=== PATIENT | female | born 1970 | race Caucasian/White ===

== ENCOUNTER 2016-12-01 09:36 | Emergency (ER) | payer BC, OTHER ==
[~2016-12-01] VITALS: Ht 157.5 cm; Wt 66.2 kg
[~2016-12-01 09:36] MED LIST: ARIP2TAB3 PO; BUPRTAB51 PO; GDN/80 PO; SPIR100T PO
[2016-12-01 09:39] VITALS: TEMP 36.8; Ht 157.5 cm; Wt 66.2 kg
[2016-12-01 10:01] VITALS: O2SAT 98
[2016-12-01] MEDS ORDERED: SNG10 PO (10:08)
[2016-12-01 10:36] LABS: BASO % 0.4 %; EOS % 3.6 %; HEMATOCRIT 42.8 % (37-47); IG% 0.3 %; LYMPH % 21.4 %; LYMPH ABS # 2.12 K/uL (1.2-3.4); MEAN CELL VOLUME 88.2 fL (80-100); MEAN CORPUSCULAR HEMOGLOBIN 29.7 pg (25-34); MEAN CORPUSCULAR HGB CONC 33.6 g/dl (32-36); MEAN PLATELET VOLUME 9.2 fL (7.4-10.4); MONO % 7.2 %; NEUT % 67.1 %; PLATELET COUNT 249 K/uL (130-400); RED BLOOD COUNT 4.85 M/uL (4.2-5.4)
[2016-12-01 10:37] LABS: BASO ABS # 0.04 K/uL (0-0.2); COMPLETE YES
--- NOTE | 2016-12-01 10:43 | DIAGNOSTIC IMAGING REPORT ---
SINGLE VIEW CHEST CLINICAL HISTORY: Atypical chest pain. FINDINGS: An AP, portable, upright chest radiograph is compared to study dated 02/22/2014. The cardiomediastinal silhouette is unremarkable. The lungs and pleural spaces are clear. There is mild apical scarring. No pneumothorax is seen. The bony thorax is grossly intact. IMPRESSION: No active disease in the chest. Electronically signed by: Merlin Juarez M.D. 12/01/2016 10:42 AM Dictated Date/Time: 12/01/2016 10:41 AM
[2016-12-01 10:46] LABS: PREG INTERNAL NEGATIVE QC NEG CLEAR BACKGROUND; PREG INTERNAL POSITIVE QC POS CONTROL LINE
[2016-12-01 10:54] LABS: ALT/SGPT 24 U/L (12-78); BLOOD UREA NITROGEN 15 mg/dl (7-18); BUN/CREATININE RATIO 18.3 (10-20); CALCIUM 8.8 mg/dl (8.5-10.1); CARBON DIOXIDE 29 mmol/L (21-32); CHLORIDE 105 mmol/L (98-107); CREATININE 0.84 mg/dl (0.60-1.20); GLUCOSE 89 mg/dl (70-99); POTASSIUM 4.2 mmol/L (3.5-5.1); SODIUM 138 mmol/L (136-145)
[2016-12-01 10:57] LABS: PARTIAL THROMBOPLASTIN RATIO 1.1; PROTHROMBIN TIME (PATIENT) 10.6 SECONDS (9.0-12.0)
[2016-12-01 10:59] LABS: ALKALINE PHOSPHATASE 53 U/L (45-117); AST/SGOT 15 U/L (15-37)
--- NOTE | 2016-12-01 11:20 | EMERGENCY ROOM VISIT NOTE ---
History Report prepared by Eli: Charleen Landry Under the Supervision of: Dr. Dexter Andrew D.O. First contact with patient: 10:23 Chief Complaint: CHEST PAIN Stated Complaint: CHEST PAIN Nursing Triage Summary: pt reports midsternal cp that started several weeeks ago readiates to the L side of chest . reports pain has intesified overnight , denies sob or NV History of Present Illness The patient is a 46 year old female who presents to the Emergency Room with complaints of worsening chest pain starting several weeks ago. The pain is in the center of her chest and radiates to the left. She has had the pain for a while, but it worsened overnight. She called her PCP today who told her to present to the ED. She kept waking up through the night because of the pain. The pain worsens with breathing deeply and certain movements like raising her arms up and sitting up. She denies any abdominal pain, pain/swelling in the legs , SOB, or chest pain with walking. She has not been sick recently. She denies any history of blood clots. She notes that she traveled 12 hours 1 week ago. Her LNMP was 2 weeks ago which was normal for her. She denies any tobacco use. She admits to occasional alcohol use. She has a history of bipolar and seasonal allergies. Source of History: patient Onset: several weeks ago Position: chest Quality: other (pain) Timing: worsening Modifying Factors (Worsening): breathing, movement Associated Symptoms: No SOB, No abdominal pain Note: Pt denies pain/swelling in the legs, chest pain with walking. Review of Systems See HPI for pertinent positives & negatives. A total of 10 systems reviewed and were otherwise negative. Past Medical & Surgical Medical Problems: (1) Bipolar disorder (2) Seasonal allergies Family History No pertinent family history stated. Social History Smoking Status: Never Smoker Alcohol Use: occasionally Marital Status: Housing Status: lives with family Current/Historical Medications Scheduled Aripiprazole (Abilify), 2.5 MG PO DAILY Bupropion Hcl (Wellbutrin Xl), 150 MG PO DAILY Montelukast Sod (Montelukast Sodium), 10 MG PO DAILY Spironolactone (Aldactone), 50 MG PO BID Allergies Coded Allergies: Sulfamethoxazole w/Trimethoprim (Verified Allergy, Unknown, hives/rash, 12/01/16) Physical Exam Vital Signs Date Time Temp Pulse Resp B/P (MAP) Pulse Ox O2 Delivery O2 Flow Rate FiO2 12/01/16 11:49 73 16 97/69 99 12/01/16 11:43 73 16 97/69 99 Room Air 12/01/16 10:21 68 24 97 12/01/16 10:16 71 15 97 12/01/16 10:11 76 17 97 12/01/16 10:06 70 17 97 12/01/16 10:01 70 20 97 12/01/16 10:01 98 Room Air 12/01/16 09:56 69 19 98 12/01/16 09:54 72 12/01/16 09:51 95/72 12/01/16 09:39 36.8 76 18 125/82 97 Room Air Physical Exam GENERAL: Patient is awake, alert, and in no acute distress. Patient is resting comfortably and showing no signs of anxiety EYES: The conjunctivae are clear. The pupils are round and reactive. EARS, NOSE, MOUTH AND THROAT: The nose is without any evidence of any deformity. Mucous membranes are moist tongue is midline NECK: The neck is nontender and supple. RESPIRATORY: Normal respiratory effort is noted there is no evidence of wheezing rhonchi or rales CARDIOVASCULAR: Regular rate and rhythm noted there no murmurs rubs or gallops normal S1 normal S2 GASTROINTESTINAL: The abdomen is soft. Bowel sounds are present in all quadrants. Abdomen is nontender MUSCULOSKELETAL/EXTREMITIES: There is no evidence of gross deformity full range of motion is noted in the hips and shoulders. Reproducible chest pain with palpation over the left anterior chest wall. SKIN: There is no obvious evidence of any rash. There are no petechiae, pallor or cyanosis noted. NEUROLOGIC: Patient is awake alert and oriented x3 Medical Decision & Procedures ER Provider Diagnostic Interpretation: X-ray results as stated below per interpretation by me and the radiologist. SINGLE VIEW CHEST CLINICAL HISTORY: Atypical chest pain. FINDINGS: An AP, portable, upright chest radiograph is compared to study dated 02/22/2014. The cardiomediastinal silhouette is unremarkable. The lungs and pleural spaces are clear. There is mild apical scarring. No pneumothorax is seen. The bony thorax is grossly intact. IMPRESSION: No active disease in the chest. Electronically signed by: Merlin Juarez M.D. 12/01/2016 10:42 AM Dictated Date/Time: 12/01/2016 10:41 AM Laboratory Results 12/01/16 10:01 Red Blood Count 4.85, Mean Corpuscular Volume 88.2, Mean Corpuscular Hemoglobin 29.7, Mean Corpuscular Hemoglobin Concent 33.6, Mean Platelet Volume 9.2, Neutrophils (%) (Auto) 67.1, Lymphocytes (%) (Auto) 21.4, Monocytes (%) (Auto) 7.2, Eosinophils (%) (Auto) 3.6, Basophils (%) (Auto) 0.4, Neutrophils # (Auto) 6.64, Lymphocytes # (Auto) 2.12, Monocytes # (Auto) 0.71, Eosinophils # (Auto) 0.36, Basophils # (Auto) 0.04 12/01/16 10:01 Test 12/01/16 10:01 12/01/16 10:36 White Blood Count 9.90 K/uL (4.8-10.8) Red Blood Count 4.85 M/uL (4.2-5.4) Hemoglobin 14.4 g/dL (12.0-16.0) Hematocrit 42.8 % (37-47) Mean Corpuscular Volume 88.2 fL (80-100) Mean Corpuscular Hemoglobin 29.7 pg (25-34) Mean Corpuscular Hemoglobin Concent 33.6 g/dl (32-36) Platelet Count 249 K/uL (130-400) Mean Platelet Volume 9.2 fL (7.4-10.4) Neutrophils (%) (Auto) 67.1 % Lymphocytes (%) (Auto) 21.4 % Monocytes (%) (Auto) 7.2 % Eosinophils (%) (Auto) 3.6 % Basophils (%) (Auto) 0.4 % Neutrophils # (Auto) 6.64 K/uL (1.4-6.5) Lymphocytes # (Auto) 2.12 K/uL (1.2-3.4) Monocytes # (Auto) 0.71 K/uL (0.11-0.59) Eosinophils # (Auto) 0.36 K/uL (0-0.5) Basophils # (Auto) 0.04 K/uL (0-0.2) RDW Standard Deviation 41.2 fL (36.4-46.3) RDW Coefficient of Variation 12.9 % (11.5-14.5) Immature Granulocyte % (Auto) 0.3 % Immature Granulocyte # (Auto) 0.03 K/uL (0.00-0.02) Prothrombin Time 10.6 SECONDS (9.0-12.0) Prothromb Time International Ratio 1.0 (0.9-1.1) Activated Partial Thromboplast Time 29.6 SECONDS (21.0-31.0) Partial Thromboplastin Ratio 1.1 Anion Gap 4.0 mmol/L (3-11) Est Creatinine Clear Calc Drug Dose 74.7 ml/min Estimated GFR () 96.6 Estimated GFR (Non- 83.3 BUN/Creatinine Ratio 18.3 (10-20) Calcium Level 8.8 mg/dl (8.5-10.1) Total Bilirubin 0.5 mg/dl (0.2-1) Direct Bilirubin < 0.1 mg/dl (0-0.2) Aspartate Amino Transf (AST/SGOT) 15 U/L (15-37) Alanine Aminotransferase (ALT/SGPT) 24 U/L (12-78) Alkaline Phosphatase 53 U/L (45-117) Troponin I < 0.015 ng/ml (0-0.045) Total Protein 6.8 gm/dl (6.4-8.2) Albumin 3.6 gm/dl (3.4-5.0) Lipase 208 U/L (73-393) Human Chorionic Gonadotropin, Qual NEG (NEG) Bedside D-Dimer 115 ng/mlFEU (0-450) Laboratory results per my review. ECG Indication: chest pain Rate (beats per minute): 75 Rhythm: normal sinus Findings: no ectopy, other (no acute ST segment abnormality) Comparison ECG Date: 22-Feb-2014 Change: no significant change ED Course 1027: The patient was evaluated in room B6. A complete history and physical examination were performed. 1129: Upon reevaluation, the patient is resting comfortably. I discussed the results and treatment plan with her. She verbalized agreement of the treatment plan. She was discharged home. Medical Decision Prior records/ancillary studies reviewed. Triage Nursing notes reviewed. The patient's history was concerning for chest pain. Differential diagnosis: Etiologies such as cardiac ischemia, aortic dissection, pulmonary embolism, pneumonia, pneumothorax, musculoskeletal, infections, pericarditis, myocarditis , esophageal rupture, gastrointestinal, as well as others were entertained. Medication Reconciliation: I attest that I have personally reviewed the patient' s current medications list. Blood pressure screening: Patient was found to have normal blood pressure on screening and does not require follow-up. The patient is a 46-year-old female who presented to the emergency department at the request of her primary care physician for reproducible chest pain which have been going on for a few days. The patient states that she's had a similar episode in the past and was diagnosed with pleurisy. The patient was found have an EKG which was unchanged from previous and did not show any acute ischemic changes. She also was found have normal cardiac biomarkers as well as a normal d -dimer. I discussed the patient's laboratory radiographic studies with her. I also discussed the limitations of the emergency department workup for chest pain with her but at this time I think this most likely represents costochondritis or possibly pleurisy. The patient was encouraged to rest and avoid any strenuous activity. She was also encouraged to call her primary care physician to schedule a follow-up appointment. She was also encouraged to return to emergency department immediately if symptoms change worsen or the need arises. Impression Primary Impression: Chest pain Additional Impression: Costochondritis Scribe Attestation The scribe's documentation has been prepared under my direction and personally reviewed by me in its entirety. I confirm that the note above accurately reflects all work, treatment, procedures, and medical decision making performed by me. Departure Information Dispostion Home / Self-Care Referrals Trinidad Geiger D.O. (PCP) Forms HOME CARE DOCUMENTATION FORM, IMPORTANT VISIT INFORMATION Patient Instructions ED Chest Pain Costochondritis, My [facility] Additional Instructions Call your family to schedule a follow-up appointment. Rest and avoid any strenuous activity. Continue using Motrin and Tylenol as directed for pain. Follow-up with your family this week for reevaluation. Return to the emergency department if symptoms worsen or need arises. Problem Qualifiers Primary Impression: Chest pain Chest pain type: unspecified Qualified Codes: R07.9 - Chest pain, unspecified
[2016-12-01 11:49] VITALS: BP 97/69; PULSE 73; O2SAT 99
== END 2016-12-01 11:50 | disposition home or self-care (01) ==
LOC: C.EDB 09:37
DX: R07.9 Chest pain, unspecified (principal); M94.0 Chondrocostal junction syndrome [Tietze]; F31.9 Bipolar disorder, unspecified; J30.2 Other seasonal allergic rhinitis

== ENCOUNTER 2017-12-20 19:18 | Emergency (ER) | payer OTHER ==
[~2017-12-20] VITALS: Ht 157.5 cm; Wt 73.4 kg
[~2017-12-20 19:18] MED LIST changes: -GDN/80 PO; +SNG10 PO
[2017-12-20 19:21] VITALS: PULSE 100; O2SAT 99; Ht 157.5 cm; Wt 73.4 kg
[2017-12-20] MEDS ORDERED: LIDOCAINE HCL 1% 20 ML VIAL ONE (19:26)
--- NOTE | 2017-12-20 19:41 | EMERGENCY ROOM VISIT NOTE ---
ED Visit Note First contact with patient: 19:23 Foreign body CHIEF COMPLAINT: Stepped on glass HISTORY OF PRESENT ILLNESS: This 47-year-old patient presents to the emergency department after they stepped on some glass puncturing the bottom of the right foot. The glass did not go through their shoe. The area is painful and the patient does think there is anything in the wound. The patient's tetanus shot is up-to-date. The patient rates the pain as mild and 2/10. The patient has tried to remove the piece of glass but was unsuccessful. The patient is able able to walk. This happened inside the house. REVIEW OF SYSTEMS: A 6 system review of systems was completed with positives and pertinent negatives listed in the HPI. ALLERGIES: Sulfa MEDICATIONS: Reviewed PMH: Medical Problems: (1) Bipolar disorder Status: Chronic (2) Seasonal allergies Status: Chronic SOCIAL HISTORY: No drug use PHYSICAL EXAM: Vital Signs: Reviewed Nurse's notes, vital signs stable. GENERAL : Pleasant female, in no acute distress, well-developed, well-nourished. SKIN: There is a small e abrasion wound on the plantar aspect of the ball of the right foot . A small piece of glass foreign material is seen in the wound. The epidermis was lifted off the puncture site and the base of the wound inspected. foreign material could be seen there. The area was not particularly tender or swollen. Capillary refill is in two seconds. MUSCULOSKELETAL: The patient has full range of motion of the toes and ankle of the right lower extremity. Peripheral pulses 2+. EMERGENCY DEPARTMENT COURSE: I examined the patient. Using clean technique the wound was cleaned with Betadine. Area was anesthetized with 1 mL of lidocaine. The epidermis was lifted off of the puncture site with forceps and the wound was further explored. A small piece of glass was removed without difficulties. The wound was copiously irrigated with sterile saline under pressure. The area was then cleaned with sterile saline and dressed with bacitracin and a bandage. Patient was kept on signs and symptoms of infection and verbalized understanding of this. The patient was discharged home in stable condition. DIAGNOSIS: Foreign body of right foot removed DISCHARGE INSTRUCTIONS: As below Problem List Medical Problems: (1) Bipolar disorder Status: Chronic (2) Seasonal allergies Status: Chronic Current/Historical Medications Scheduled Aripiprazole (Abilify), 2.5 MG PO DAILY Bupropion Hcl (Wellbutrin Xl), 150 MG PO DAILY Montelukast Sod (Montelukast Sodium), 10 MG PO DAILY Spironolactone (Aldactone), 50 MG PO BID Allergies Coded Allergies: Sulfamethoxazole w/Trimethoprim (Verified Allergy, Unknown, hives/rash, 12/01/16) Vital Signs Date Time Temp Pulse Resp B/P (MAP) Pulse Ox O2 Delivery O2 Flow Rate FiO2 12/20/17 19:21 100 18 99 Room Air Medications Administered Medications (Trade) Dose Ordered Sig/Ashley Route Start Time Stop Time Status Last Admin Dose Admin Lidocaine HCl (Xylocaine 1% Inj (Local)) 20 ml STK-MED ONCE .ROUTE 12/20/17 19:26 12/20/17 19:27 DC 12/20/17 19:26 20 ML Departure Information Impression Primary Impression: Foreign body of foot, superficial Dispostion Home / Self-Care Condition GOOD Forms HOME CARE DOCUMENTATION FORM, IMPORTANT VISIT INFORMATION Patient Instructions [facility], ED Foreign Body Soft Tissue Additional Instructions Antibiotic ointment and bandage to the areas until healed. Follow up with family doctor or return for any signs of infection (increasing redness, swelling , drainage, or fever). Keep covered when in sun until fully healed then SPF 50 or higher until scar healed. Return to the ER sooner for fevers, severe pain, drainage, worsening signs or symptoms or as needed.
== END 2017-12-20 19:43 | disposition home or self-care (01) ==
LOC: C.EDB 19:19 → C.EDD 19:43
DX: S90.851A Superficial foreign body, right foot, initial encounter (principal); F31.9 Bipolar disorder, unspecified; Z79.899 Other long term (current) drug therapy; Z88.2 Allergy status to sulfonamides; W25.XXXA Contact with sharp glass, initial encounter